=== PATIENT | male | born 1960 | race Caucasian/White ===

== ENCOUNTER 2024-06-10 19:45 | Emergency (ER) | payer OTHER ==
[2024-06-10] MEDS ORDERED: Sodium Chloride 0.9% 10 ML Syringe FLUSH PRN (19:54)
[2024-06-10] MEDS: Lactated Ringers 1,000 ML IV SCH (19:55)
[2024-06-10] MEDS: Ondansetron 4 MG/2 ML SDV IVPUSH PRN (20:06)
[2024-06-10] MEDS: fentaNYL 50 MCG/ML SDV IVPUSH ONE ×5 (20:06→23:07)
[2024-06-10 20:17] LABS: BASOPHILS ABSOLUTE AUTO 0.1 x10^3/uL (0.0-0.2); BASOPHILS PERCENT AUTO 0.8 % (0.2-1.2); EOSINOPHILS ABSOLUTE AUTO 0.4 x10^3/uL (0.0-0.5); EOSINOPHILS PERCENT AUTO 3.8 % (0.0-4.0); HEMOGLOBIN 13.7 g/dL (14.0-18.0); IMMATURE GRAN ABSOLUTE AUTO 0.02 x10^3/uL (0.00-0.07); LYMPHOCYTES ABSOLUTE AUTO 2.8 x10^3/uL (1.0-4.8); LYMPHOCYTES PERCENT AUTO 24.5 % (25.0-50.0); MEAN CORPUSCULAR HEMOGLOBIN 32.7 pg (26.0-32.0); MEAN CORPUSCULAR HGB CONC 35.1 g/dL (32.0-36.0); MEAN CORPUSCULAR VOLUME 93.1 fL (78.0-93.0); MONOCYTES ABSOLUTE AUTO 0.9 x10^3/uL (0.0-0.8); MONOCYTES PERCENT AUTO 7.9 % (2.0-11.0); NEUTROPHILS ABSOLUTE AUTO 7.2 x10^3/uL (1.8-7.7); NEUTROPHILS PERCENT AUTO 62.8 % (50.0-80.0); PLATELET COUNT,PLT 428 x10^3/uL (130-400); RED BLOOD CELL COUNT 4.19 x10^6/uL (4.5-6.0); WHITE BLOOD CELL COUNT,WBC 11.5 x10^3/uL (4.0-10.0)
[2024-06-10 20:29] LABS: A/G RATIO 0.89; ALANINE AMINOTRANSFERASE,ALT 42 U/L (16-63); ALBUMIN 3.3 g/dL (3.4-5.0); ALKALINE PHOSPHATASE 76 U/L (46-116); ASPARTATE AMNIOTRANSFERASE,AST 29 U/L (15-37); BILIRUBIN TOTAL 0.4 mg/dL (0.2-1.0); BLOOD UREA NITROGEN,BUN 22 mg/dL (7-18); CARBON DIOXIDE,CO2 28 mmol/L (21-32); CHLORIDE,CL 106 mmol/L (98-107); CREATININE 1.2 mg/dL (0.70-1.30); GLUCOSE RANDOM 117 mg/dL (70-99); POTASSIUM,K 3.5 mmol/L (3.5-5.1); SODIUM,NA 142 mmol/L (136-145)
[2024-06-10 20:30] LABS: ANION GAP 11.5 mmol/L (5-15); ESTIMATED GFR 68 mL/min (>=60)
[2024-06-10] MEDS: Ondansetron 4 MG/2 ML SDV IVPUSH ONE (21:24)
[2024-06-10 21:59] LABS: BILIRUBIN,URINE NEGATIVE (NEGATIVE); COLOR,URINE YELLOW (YELLOW); GLUCOSE,URINE NEGATIVE (NEGATIVE); KETONES,URINE NEGATIVE (NEGATIVE); LEUKOCYTE ESTERASE,URINE NEGATIVE (NEGATIVE); NITRITE,URINE NEGATIVE (NEGATIVE); OCCULT BLOOD,URINE NEGATIVE (NEGATIVE); PH,URINE 7.5 (5.0-8.0); PROTEIN,URINE NEGATIVE (NEGATIVE); UROBILINOGEN,URINE 0.2 EU/dL (0.2)
[2024-06-10 22:01] LABS: APPEARANCE,URINE SLIGHTLY CLOUDY (CLEAR)
[2024-06-10] MEDS: Iopamidol 612 MG/ML 100 ML Bottle IVPUSH ONE ×2 (22:01→22:04)
[2024-06-10] MEDS: Ketorolac 15 MG/ML SDV IVPUSH ONE (23:06)
== END 2024-06-11 00:25 | disposition short-term general hospital (02) ==
LOC: VM.ED 19:45
DX: K80.20 Calculus of gallbladder without cholecystitis without obstruction (principal)
CPT/HCPCS: 36415; 74177; 80053; 81003; 83605; 83690; 84484; 85025; 93005; 93010; 94760; 96361; 96374; 96375; 96376; 99284; 99285-25; J1885; J2405; J3010; J7120; Q9967